=== PATIENT | male | born 1960 | race Hispanic/Latino ===

== ENCOUNTER 2019-07-21 06:30 | Day surgery (SDC) | payer OTHER ==
[2019-07-15 16:37] LABS: BASOPHILS % (AUTO) 1.1 % (0.0-5.0); EOSINOPHILS % (AUTO) 3.8 % (0.0-8.0); HEMATOCRIT 44.6 % (42-54); LYMPHOCYTES % (AUTO) 28.8 % (21.0-51.0); MEAN CORPUSCULAR HEMOGLOBIN 30.6 pg (27.0-33.0); MEAN CORPUSCULAR VOLUME 87.6 fL (79-99); NEUTROPHILS % (AUTO) 60.3 % (40.0-77.0); NUCLEATED RED BLOOD CELLS 0.1 % (0.0-0.19); PLATELET COUNT (AUTO) 187 K/uL (130-400); RED BLOOD CELL COUNT(AUTO) 5.09 MIL/uL (4.50-6.20); RED CELL DISTRIBUTION WIDTH 14.1 % (11.0-15.5); WHITE BLOOD COUNT (AUTO) 5.1 K/uL (4.8-10.8)
[2019-07-15 16:44] LABS: CREATININE 1.1 mg/dL (0.5-1.5); POTASSIUM 4.6 mmol/L (3.5-5.1)
[2019-07-15 17:48] VITALS: BP 115/64
[~2019-07-21] VITALS: Ht 180.3 cm; Wt 96.2 kg
[2019-07-21] VITALS (17 sets, daily range): BP systolic 103–154; BP diastolic 49–83
[2019-07-21] MEDS ORDERED: CEFAZOLIN SODIUM 1 GM VIAL ONE (06:41)
[2019-07-21] MEDS ORDERED: FENTANYL CITRATE PF 50 MCG/1 ML 5ML AMP IV ONE (07:17)
[2019-07-21] MEDS ORDERED: PROPOFOL 10 MG/ML 20ML VIAL IV ONE (07:17)
[2019-07-21] MEDS ORDERED: MIDAZOLAM HCL 1 MG/ML 2ML VIAL ONE (07:17)
[2019-07-21] MEDS ORDERED: ROCURONIUM 10MG/1ML SYR 10 MG/ML ML ONE (07:18)
[2019-07-21] MEDS ORDERED: LIDOCAINE PF 2% 5ML ABBOJECT ONE (07:18)
[2019-07-21] MEDS: CEFAZOLIN SODIUM 1 GM VIAL IVP ONE ×2 (07:19→07:50)
[2019-07-21] MEDS ORDERED: EPHEDRINE SULFATE 50 MG/ML AMPULE ONE (07:53)
[2019-07-21] MEDS ORDERED: LACTATED RINGERS 1000ML 1,000 ML IV SCH (08:00)
[2019-07-21] MEDS ORDERED: DEXAMETHASONE SOD PHOSPHATE 10MG/ML 1ML VIAL ONE (08:20)
[2019-07-21] MEDS ORDERED: ONDANSETRON HCL 4 MG/2 ML VIAL ONE ×3 (08:20→10:08)
[2019-07-21] MEDS ORDERED: GLYCOPYRROLATE 1 MG/5 ML SYRINGE ONE (08:21)
[2019-07-21] MEDS ORDERED: KETOROLAC TROMETHAMINE 30MG/ML ONE (08:21)
[2019-07-21] MEDS ORDERED: NEOSTIGMINE 5MG/5ML SYR IV ONE (08:21)
--- NOTE | 2019-07-21 10:40 | NUR ---
post receive pt from [facility], s/p right shoulder rotator cuff sx. dressing to site dry and intact, abduction pillow in place. pt had nerve block unable to wiggle fingers to right hand, right arm warm to touch , pink in color. good capillary refill. ayaz radial pulse strong.
--- NOTE | 2019-07-21 11:20 | NUR ---
dc pt dc home via [facility], no distress noted. denied any pain , abduction pillow to right shoulder, dressing to site dry and intact, pt had nerve block, unable to move fingers yet. right arm with strong radial pulses. arm warm and pink,pt accompanied by spouse
== END 2019-07-21 11:20 | disposition home or self-care (01) ==
LOC: DAH 06:30
PROVIDERS: ATTEND Orthopaedic Surgery
DX: M75.111 Incomplete rotator cuff tear or rupture of right shoulder, not specified as traumatic (principal); Z79.899 Other long term (current) drug therapy; Z72.89 Other problems related to lifestyle; Z98.890 Other specified postprocedural states; Z87.891 Personal history of nicotine dependence; Z82.49 Family history of ischemic heart disease and other diseases of the circulatory system; Z83.3 Family history of diabetes mellitus; Z82.3 Family history of stroke
CPT/HCPCS: 29827; 29828; 36415; 64415; 80048; 85025; A4215 ×2; A4221; A4222; A4223; A4452; A4649 ×5; A4663; A4930; A5120; C1713 ×3; C1769; J0690; J1100; J1885; J2001; J2250; J2405 ×3; J2704; J2710; J3010; J3490 ×2; J7120 ×2

== ENCOUNTER → 2019-12-01 | Outpatient (CLI) | payer OTHER | END | disposition home or self-care (01) | LOC: RAH 12:51 | PROVIDERS: ATTEND Internal Medicine Cardiovascular Disease | DX: Z13.6 Encounter for screening for cardiovascular disorders (principal) | CPT/HCPCS: 75571 ==